=== PATIENT | female | born 1940 | race Caucasian/White ===

== ENCOUNTER 2016-12-08 14:40 | Observation (INO) | payer MEDICARE, BC ==
--- NOTE | 2016-12-08 14:58 | ERNOTE ---
Chest Pain/Cardiac HPI Date of Service: 12/08/16 Chief Complaint: Chest Pain Time Seen by Provider: 12/08/16 14:45 Source: patient, family Exam Limitations: no limitations Allergies/Adverse Reactions: Allergies No Known Allergies Allergy (Verified 12/08/16 14:51) Home Medications: HOME MEDICATIONS Aspirin [Aspirin Enteric Coated] 81 mg PO DAILY 09/18/14 [Last Taken Unknown] Cyanocobalamin (Vitamin B-12) [Vitamin B-12] 1,000 mcg IM Q30D 09/18/14 [Last Taken Unknown] Nitroglycerin 0.4 mg SL Q5MX3 PRN 09/18/14 [Last Taken Unknown] Acetaminophen [Tylenol] 650 mg PO PRN 12/08/16 [Last Taken Unknown] Docusate Sodium [Stool Softener] 100 mg PO DAILY 12/08/16 [Last Taken Unknown] Narrative: Last night, this 76 y/o woman developed central chest pressure associated with dyspnea. NOS. Sitting up seemed to help a little. It lasted about ten minutes, then went away. This morning, she went down the basement to bring up some clothes. On the way up, she developed the same problem, which again lasted 5-10 minutes. She then went to her granddaughter's house. Walking into the house, the discomfort returned. She took a s.l. nitroglycerin pill. The discomfort went away in 3-5 minutes. She got the NTG perhaps four years ago. She had been evaluated in [place], including with angiography, and was told she had angina. She came to the [facility] ER today in a private vehicle, and has had no discomfort while here. Timing: intermittent Severity/Quality: moderate, tightness Location: central Chest Pain Radiation: no radiation Activities at Onset: none Modifying Factors - Improves: Present: nitroglycerin Modifying Factors - Worsens: Present: exercise Nitro Today/Relief: 0.4 mg x 1, provided at home, complete relief Aspirin Treatment Today: no aspirin today Associated Symptoms: Present: shortness of breath Prior Chest Pain/Cardiac Workup: Reports: prior chest pain, cardiac cath Prior Treatment: Denies: currently on antibiotics Review of Systems - Review of Systems Constitutional: Present: no symptoms reported EYE: Present: no symptoms reported ENT: Present: no symptoms reported Respiratory: Present: shortness of breath Cardiology: Present: chest pain Gastrointestinal/Abdominal: Present: no symptoms reported Genitourinary: Present: no symptoms reported Musculoskeletal: Present: no symptoms reported Skin: Present: no symptoms reported Neurological: Present: no symptoms reported Endocrine: Present: no symptoms reported Hematologic/Lymphatic: Present: no symptoms reported Psych: Present: no symptoms reported All Other Systems: All systems neg except as marked - Patient's Past Medical History Patient History - Medical: No pertinent hx Patient History - Cardiac/Respiratory: Angina Patient History - Cancer: No Hx of Cancer Patient History - Surgical Procedures: Hysterectomy Patient History - Other: None - Social History Living Situations: home Psych History: No pertinent hx Physical Exam - Physical Exam General Appearance: Present: wd/wn, alert, no apparent distress Eye Exam: Normal inspection: bilateral, PERRL: bilateral, EOMI: bilateral Ears, Nose, Throat: Present: normal ENT inspection. Absent: hearing decreased Neck: Present: normal inspection, nontender, supple Respiratory: Present: no respiratory distress, normal breath sounds Cardiovascular/Chest: Present: regular rate, rhythm, no murmur Gastrointestinal/Abdominal: Present: normal bowel sounds, nontender, nondistended, soft, no organomegaly Back Exam: Present: normal inspection, no CVA tenderness, no vertebral tenderness Extremity Exam: Present: normal inspection, no edema Neurological Exam: Present: alert, oriented, normal mood/affect Skin Exam: Present: normal color, warm/dry ED Progress - Results and Orders Patient's Lab Results:: I have reviewed the patient's lab results. - Vital Signs Patient's Vital Signs:: I have reviewed the patient's vital signs. Vital Signs: Vital Signs 12/08/16 14:44 Temperature 37.0 C Pulse Rate 81 Respiratory 14 Rate Blood Pressure 160/79 O2 Sat by Pulse 97 Oximetry - EKG EKG: NSR EKG read: Interp. by pa - borderline LAD - Progress/Reassessment Chief Complaint: Chest Pain Progress Note-Subjective: 12/08/16 16:12 Patient remains pain free. Borderline elevated troponin. I spoke with Nay Agarwal, hospitalist, who agreed to accept the patient as an observation med- surg telemetry admission. Departure - Departure Clinical Impression: Angina pectoris, Elevated troponin Disposition: [facility] Condition: Good Referrals: Hermila Duenas MD [Primary Care Provider] -
[2016-12-08] MEDS ORDERED: ASPIRIN 81 MG TAB.CHEW PO ONE (15:00)
[2016-12-08 15:14] LABS: Hematocrit 40.6 % (37.0-47.0); Hemoglobin 13.7 gm/dL (12.5-16.0); Mean Cell Volume 94.2 fl (78-100); Mean Corpuscular Hemoglobin 31.8 pg (27-31); Mean Corpuscular Hgb Conc 33.7 g/dl (32-36); Mean Platelet Volume 8.9 fl (6.0-9.5); Neutrophil # 3.1 K/mm3 (1.3-6.0); Neutrophil % 62.1 % (42-75.0); Platelet Count 175 K/mm3 (150-450); Red Blood Count 4.31 M/mm3 (4.2-5.4); Red Cell Distribution Width 13.2 % (11.5-14.0)
[2016-12-08] MEDS ORDERED: ASPIRIN 81 MG TAB.CHEW ONE (15:18)
[2016-12-08 15:27] LABS: INR 0.96 INR (0.90-1.10); Partial Thrombolplastin Time 25.1 Seconds (24-32)
[2016-12-08 15:34] LABS: Albumin * 3.7 gm/dl (3.4-5.0); BUN/Creatinine Ratio 16.9 (9.0-21.6); Bilirubin, Total 0.4 mg/dL (0.0-1.1); Ca. Corrected For Albumin 8.8 mg/dL (8.4-10.2); Calcium * 8.9 mg/dL (7.9-10.9); Carbon Dioxide 23.6 mmol/L (24-32.6); Potassium 3.6 mmol/L (3.4-4.6); Total Protein 7.7 gm/dL (6.2-8.2)
[2016-12-08 15:35] LABS: Troponin I 0.163 ng/ml (0.00-0.10)
[2016-12-08] MEDS ORDERED: NITROGLYCERIN 0.4 MG/TAB BTL SL PRN (16:25)
[2016-12-08] MEDS ORDERED: ACETAMINOPHEN 325 MG TABLET PO PRN (16:25)
[2016-12-08] MEDS ORDERED: LORazepam 2 MG/ML DISP.SYRIN IV ONE (17:52)
[2016-12-08] MEDS ORDERED: CYANOCOBALAMIN 1,000 MCG/ML VIAL IM SCH (18:15)
[2016-12-08] MEDS ORDERED: CLOPIDOGREL BISULFATE 75 MG TABLET PO STA (18:18)
[2016-12-08] MEDS ORDERED: NITROGLYCERIN IN 5 % DEXTROSE 50 MG/250 ML INFUS..BTL IV PRN (18:19)
[2016-12-08] MEDS ORDERED: HEPARIN SODIUM,PORCINE/D5W 25,000 UNITS/500 ML BAG IV SCH (18:30)
[2016-12-08] MEDS ORDERED: HEPARIN SODIUM,PORCINE 5,000 UNITS/ML VIAL IV ONE (18:30)
--- NOTE | 2016-12-08 18:47 | HP ---
Chief Complaint - Chief Complaint Date of Service: 12/08/16 Time of Service: 18:05 Chief Complaint: chest pain History of Present Illness: Peggy is a 76 year old female who presented to the ER with c/o chest pain. States that CP started last night with exertion but resolved on own. Today, patient states that she was walking up the steps to her granddaughter's house when she developed centralized chest pressure again, took 1 SL ntg which resolved the cp on its own. At this point, she presented to the ER for eval. Preliminary troponin was elevated at 0.2. Patient informed ERP that she has had heart cath in the past which showed "angina". ERP report to me was the same. chest xray non acute. ekg non acute. As patient was being transported to the floor, I researched into patient's clinic chart and found cath records that show that she has a 50-60% lesion in her LAD from a heart cath done in 2011. ekg done when patient arrived on the unit showed inverted t waves that correlate to the LAD artery. At this point, I felt the patient was too critical to stay at [facility] and immediately started to make arrangement at [facility] patient to [facility] for intervention since she is a patient of Dr Kimble already and it is not known whether she will need bypass or not. - Patient's Past Medical History Patient History - Medical: No pertinent hx Patient History - Cardiac/Respiratory: Angina, Coronary Heart Disease, Myocardial Infarction Patient History - Cancer: No Hx of Cancer Patient History - Surgical Procedures: Hysterectomy Patient History - Other: None LMP (females 10-50): Menopausal - Family History Mother Family History - Medical: Family History - Cardiac/Respiratory: CHF Family History - Cancer: No pertinent family hx Father Family History - Medical: Family History - Cardiac/Respiratory: No pertinent hx Family History - Cancer: No pertinent family hx - Social History Living Situations: spouse Psych History: No pertinent hx Smoking Status: Never smoker Have you smoked in the past 12 months: No Do you dip or chew tobacco: No Review Of Systems (GEN) - Review of Systems Generalized/Overall Review: Present: No Symptoms Reported EENTM: Present: No Symptoms Reported Respiratory: Present: No Symptoms Reported Cardiac: Present: No Symptoms Reported Abdominal: Present: No Symptoms Reported Genitourinary: Present: No Symptoms Reported Musculoskeletal: Present: No Symptoms Reported Neurological: Present: No Symptoms Reported Skin: Present: No Symptoms Reported Endocrine: Present: No Symptoms Reported Misc: All systems neg except as marked Allergies/Adverse Reactions: Allergies Allergy/AdvReac Type Severity Reaction Status Date / Time No Known Allergies Allergy Verified 12/08/16 14:51 Home Medications: HOME MEDICATIONS Aspirin [Aspirin Enteric Coated] 81 mg PO DAILY 09/18/14 [Last Taken Unknown] Cyanocobalamin (Vitamin B-12) [Vitamin B-12] 1,000 mcg IM Q30D 09/18/14 [Last Taken Unknown] Nitroglycerin 0.4 mg SL Q5MX3 PRN 09/18/14 [Last Taken Unknown] Acetaminophen [Tylenol] 650 mg PO PRN 12/08/16 [Last Taken Unknown] Docusate Sodium [Stool Softener] 100 mg PO DAILY 12/08/16 [Last Taken Unknown] Clopidogrel Bisulfate [Plavix] 75 mg PO DAILY 12/17/16 [Last Taken Unknown] Rosuvastatin Calcium [Crestor] 10 mg PO DAILY 12/17/16 [Last Taken Unknown] Exam - Exam Vital Signs: Vital Signs - Last Taken Temp 37 C 12/08/16 16:30 Pulse 73 12/08/16 16:30 Resp 18 12/08/16 16:30 BP 158/78 12/08/16 16:30 Pulse Ox 98 12/08/16 16:30 Constitutional: Present: Alert, Oriented x3, Cooperative, No distress ENT Exam: Present: hearing grossly normal Eye Exam: bilateral eye: normal inspection Neck: Present: full range of motion, supple Back Exam: Present: no CVA tenderness Respiratory: Present: chest non-tender, lungs clear, normal breath sounds, no respiratory distress Cardiovascular/Chest: Present: normal peripheral pulses, regular rate, rhythm, no chest tenderness Peripheral Pulses: carotid (R): 2+, carotid (L): 2+, radial (R): 2+, radial (L) : 2+ Abdomen: Present: Normal bowel sounds, soft, nontender, nondistended /Rectal: Present: Exam deferred Extremity: Present: normal range of motion, non-tender, normal inspection Skin Exam: Present: normal color, warm/dry, no cyanosis Neurologic: Present: alert, normal mood/affect, oriented x 3 Diagnostic Studies: Abnormal Lab Results 12/08/16 Range/Units 17:23 Troponin I 0.222 H* (0.00-0.10) ng/ml Laboratory Results WBC 5.0 K/mm3 (4.0-10.5) 12/08/16 15:05 RBC 4.31 M/mm3 (4.2-5.4) 12/08/16 15:05 Hgb 13.7 gm/dL (12.5-16.0) 12/08/16 15:05 Hct 40.6 % (37.0-47.0) 12/08/16 15:05 MCV 94.2 fl (78-100) 12/08/16 15:05 MCH 31.8 pg (27-31) H 12/08/16 15:05 MCHC 33.7 g/dl (32-36) 12/08/16 15:05 RDW 13.2 % (11.5-14.0) 12/08/16 15:05 Plt Count 175 K/mm3 (150-450) 12/08/16 15:05 MPV 8.9 fl (6.0-9.5) 12/08/16 15:05 Immature Gran % (Auto) 0.40 % (0.001-0.429) 12/08/16 15:05 Immature Gran # (Auto) 0.02 K/mm3 (0.000-0.0310) 12/08/16 15:05 Neutrophils % 62.1 % (42-75.0) 12/08/16 15:05 Lymphocytes % 26.1 % (20-51) 12/08/16 15:05 Monocytes % 9.6 % (0.0-9) H 12/08/16 15:05 Eosinophils % 1.2 % (0.0-3.0) 12/08/16 15:05 Basophils % 0.6 % (0.0-1.0) 12/08/16 15:05 Nucleated RBC % 0.0 k/mm3 (0-1) 12/08/16 15:05 Neutrophils # 3.1 K/mm3 (1.3-6.0) 12/08/16 15:05 Lymphocytes # 1.3 k/mm3 (1.5-3.5) L 12/08/16 15:05 Monocytes # 0.5 k/mm3 (0.0-1.0) 12/08/16 15:05 Eosinophils # 0.1 k/mm3 (0.0-0.7) 12/08/16 15:05 Absolute Basophils 0.0 k/mm3 (0.0-0.1) 12/08/16 15:05 PT 10.0 Seconds (9.4-11.4) 12/08/16 15:05 INR (Anticoag Therapy) 0.96 INR (0.90-1.10) 12/08/16 15:05 PTT (Gallia) 25.1 Seconds (24-32) 12/08/16 15:05 Sodium 142 mmol/L (132-142) 12/08/16 15:05 Plasma Sodium 142 mmol/L (130-142) 12/08/16 15:05 Potassium 3.6 mmol/L (3.4-4.6) 12/08/16 15:05 Chloride 106 mmol/L (97-106) 12/08/16 15:05 Carbon Dioxide 23.6 mmol/L (24-32.6) L 12/08/16 15:05 Anion Gap 16.0 mmol/L (6.8-13.8) H 12/08/16 15:05 BUN 15 mg/dL (3-23) 12/08/16 15:05 Creatinine 0.89 mg/dL (0.4-1.4) 12/08/16 15:05 Est GFR (Non-Af Amer) 66 mL/min (60-130) 12/08/16 15:05 BUN/Creatinine Ratio 16.9 (9.0-21.6) 12/08/16 15:05 Random Glucose 129 mg/dL (70-110) H 12/08/16 15:05 Calcium 8.9 mg/dL (7.9-10.9) 12/08/16 15:05 Calcium Adj for Albumin 8.8 mg/dL (8.4-10.2) 12/08/16 15:05 Total Bilirubin 0.4 mg/dL (0.0-1.1) 12/08/16 15:05 AST 16 U/L (0-48) 12/08/16 15:05 ALT 18 U/L (19-67) L 12/08/16 15:05 Alkaline Phosphatase 154 U/L (50-170) 03/25/17 15:05 Troponin I 0.222 ng/ml (0.00-0.10) H* 12/08/16 17:23 B-Natriuretic Peptide 233 pg/mL (5-325) 12/08/16 15:05 Total Protein 7.7 gm/dL (6.2-8.2) 12/08/16 15:05 Albumin 3.7 gm/dl (3.4-5.0) 12/08/16 15:05 Assessment/Plan - Narrative Narrative: spoke with [facility], they have accepted pt. will transfer via [facility] due to critical nature. likely NSTEMI. pt started on IV ntg to increase coronary perfusion to the heart. pt started on heparin gtt. pt given plavix per cardiology orders. support given to pt's family. dr silverman on the unit and aware of pt change in condition. - Assessment/Plan (1) Chest pain Problem: Acute Qualifiers: Chest pain type: unspecified Qualified Code(s): R07.9 - Chest pain, unspecified (2) NSTEMI (non-ST elevated myocardial infarction) Problem: Acute (3) CAD (coronary artery disease) Problem: Acute Qualifiers: Coronary Disease-Associated Artery/Lesion type: [place] artery [place] vs. transplanted heart: [place] heart Associated angina: angina presence unspecified Qualified Code(s): I25.10 - Atherosclerotic heart disease of [place] coronary artery without angina pectoris (4) HTN (hypertension) Problem: Chronic Qualifiers: Hypertension type: essential hypertension Qualified Code(s): I10 - Essential (primary) hypertension (5) Combined hyperlipidemia Problem: Chronic
--- NOTE | 2016-12-08 18:50 | DS ---
(1) CAD (coronary artery disease) Problem: Acute Qualifiers: Coronary Disease-Associated Artery/Lesion type: [place] artery [place] vs. transplanted heart: [place] heart Associated angina: angina presence unspecified Qualified Code(s): I25.10 - Atherosclerotic heart disease of [place] coronary artery without angina pectoris (2) Chest pain Problem: Acute Qualifiers: Chest pain type: unspecified Qualified Code(s): R07.9 - Chest pain, unspecified (3) NSTEMI (non-ST elevated myocardial infarction) Problem: Acute (4) Combined hyperlipidemia Problem: Chronic (5) HTN (hypertension) Problem: Chronic Qualifiers: Hypertension type: essential hypertension Qualified Code(s): I10 - Essential (primary) hypertension Description of Stay: Peggy is a 76 year old female who presented to the ER with c/o chest pain. States that CP started last night with exertion but resolved on own. Today, patient states that she was walking up the steps to her granddaughter's house when she developed centralized chest pressure again, took 1 SL ntg which resolved the cp on its own. At this point, she presented to the ER for eval. Preliminary troponin was elevated at 0.2. Patient informed ERP that she has had heart cath in the past which showed "angina". ERP report to me was the same. chest xray non acute. ekg non acute. As patient was being transported to the floor, I researched into patient's clinic chart and found cath records that show that she has a 50-60% lesion in her LAD from a heart cath done in 2011. ekg done when patient arrived on the unit showed inverted t waves that correlate to the LAD artery. At this point, I felt the patient was too critical to stay at [facility] and immediately started to make arrangement at [facility] patient to [facility] for intervention since she is a patient of Dr Kimble already and it is not known whether she will need bypass or not. pt transferred to [facility] via [facility] in stable condition. Procedures Performed: none Discharge Disposition: [facility] Disposition: Other health care facility Condition: Critical Discharge Activity: Other - Bedrest Discharge Diet: NPO Referrals: Hermila Duenas MD [Primary Care Provider] - Complete Home Medications List: Complete Home Medication List: Aspirin [Aspirin Enteric Coated] 81 mg PO DAILY 09/18/14 Cyanocobalamin (Vitamin B-12) [Vitamin B-12] 1,000 mcg IM Q30D 09/18/14 Nitroglycerin 0.4 mg SL Q5MX3 PRN 09/18/14 Acetaminophen [Tylenol] 650 mg PO PRN 12/08/16 Docusate Sodium [Stool Softener] 100 mg PO DAILY 12/08/16 Clopidogrel Bisulfate [Plavix] 75 mg PO DAILY 12/17/16 Rosuvastatin Calcium [Crestor] 10 mg PO DAILY 12/17/16
[2016-12-08 19:22] VITALS: BP 140/81
[2016-12-08] MEDS ORDERED: ENOXAPARIN SODIUM 40 MG/0.4 ML SYRG SC SCH (20:00)
[2016-12-08] MEDS ORDERED: ATORVASTATIN CALCIUM 40 MG TABLET PO ONE (20:00)
[2016-12-09] MEDS ORDERED: ASPIRIN 81 MG TABLET.DR PO SCH (09:00)
[2016-12-09] MEDS ORDERED: DOCUSATE SODIUM 100 MG CAPSULE PO SCH (09:00)
[2016-12-09] MEDS ORDERED: ATORVASTATIN CALCIUM 40 MG TABLET PO SCH (21:00)
== END 2016-12-08 19:30 | disposition short-term general hospital (02) ==
LOC: ER 14:40 → MS 16:12
PROVIDERS: ADMIT Nurse Practitioner Critical Care Medicine; ATTEND Family Medicine
DX: I21.4 Non-ST elevation (NSTEMI) myocardial infarction (principal); I25.10 Atherosclerotic heart disease of native coronary artery without angina pectoris; I10 Essential (primary) hypertension; E78.2 Mixed hyperlipidemia
CPT/HCPCS: 36415; 71020; 80053; 83880; 84484; 85025; 85610; 85730; 93005; 96365; 96375; 99284; G0378